=== PATIENT | male | born 1985 | race African-American/Black ===

== ENCOUNTER 2017-05-07 16:24 | Emergency (ER) | payer SELFPAY ==
[2017-05-07] MEDS ORDERED: Ibuprofen 200 MG TAB ONE (16:32)
--- NOTE | 2017-05-07 16:51 | RAD ---
TWO VIEWS OF THE CHEST 05/07/2017 COMPARISON: 07/02/2014 HISTORY: Cough and fever for 4 days. FINDINGS: No pneumothorax, pleural fluid, focal consolidation, or alveolar edema. Heart and mediastinal contours are unremarkable. IMPRESSION: No acute findings. POS: [facility]
[2017-05-07 17:28] LABS: #Basophils 0.3 thou/uL (0.0-0.2); #Eosinphils 0.3 thou/uL (0.0-0.7); #Lymphocytes 0.8 thou/uL (1.20-3.40); #Monocytes 0.8 thou/uL (0.11-0.59); #Neutrophils 11.1 thou/uL (1.40-6.50); %Basophils 1.9 % (0.0-1.0); %Eosinophils 2.2 % (0.0-10.0); %Lymphocytes 5.8 % (21.0-51.0); %Neutrophils 84.2 % (42.0-75.0); Differential Comment SCANNED; Hemoglobin 15.2 g/dL (14.0-18.0); Mean Corpuscular HGB CONC 31.9 g/dL (32.0-36.0); Mean Corpuscular Hemoglobin 27.6 pg (27.0-31.0); Mean Corpuscular Volume 86.6 fl (80.0-94.0); Mean Platelet Volume 8.9 fL (7.4-10.4); Platelet Count 207 thou/uL (130-400); RBC Distribution Width 12.1 % (11.5-14.5); Red Blood Cell (RBC) Count 5.52 mill/uL (4.70-6.10); White Blood Cell (WBC) Count 13.1 thou/uL (4.8-10.8)
[2017-05-07 17:29] LABS: ALT (SGPT) 15 U/L (8-55); AST (SGOT) 15 U/L (5-34); Albumin 4.5 g/dL (3.5-5.0); Alkaline Phosphatase 79 U/L (40-150); Anion Gap 15 mmol/L (10-20); BUN (Urea Nitrogen) 10 mg/dL (8.9-20.6); Calc. Creatinine Clearance 0 mL/min (70-130); Calcium 9.8 mg/dL (7.8-10.44); Carbon Dioxide 24 mmol/L (22-29); Chloride 106 mmol/L (98-107); Estimated GFR-MDRD 71; Globulin 3.8 g/dL (2.4-3.5); Glucose 102 mg/dL (70-105); Potassium 4.1 mmol/L (3.5-5.1); Protein, Total 8.3 g/dL (6.0-8.3); Sodium 141 mmol/L (136-145)
[2017-05-07] MEDS ORDERED: Sodium Chloride 0.9% 100 ML ONE (17:34)
[2017-05-07] MEDS ORDERED: Sodium Chloride 0.9% 1,000 ML ONE (17:34)
[2017-05-07] MEDS ORDERED: cefTRIAXone\\ROCEPHIN 1 GM VIAL ONE (17:34)
== END 2017-05-07 18:53 | disposition short-term general hospital (02) ==
LOC: NAV ERS 16:24
DX: A41.9 Sepsis, unspecified organism (principal); J18.9 Pneumonia, unspecified organism
CPT/HCPCS: 71020; 80053; 83605; 85025; 87040; 94640; 94760; 96365; J0696; J7050; J7620

== ENCOUNTER 2018-12-23 05:03 | Emergency (ER) | payer SELFPAY ==
[2018-12-23] MEDS ORDERED: Ketorolac Tromethamine 60 MG/2 ML VIAL ONE (05:43)
== END 2018-12-23 06:10 | disposition home or self-care (01) ==
LOC: NAV ERS 05:03
DX: K06.9 Disorder of gingiva and edentulous alveolar ridge, unspecified (principal); K02.9 Dental caries, unspecified; Z87.891 Personal history of nicotine dependence
CPT/HCPCS: J1885

== ENCOUNTER 2019-02-18 08:05 | Emergency (ER) | payer SELFPAY ==
[2019-02-18] MEDS ORDERED: Ondansetron ODT 4 MG TAB ONE (08:34)
== END 2019-02-18 09:34 | disposition home or self-care (01) ==
LOC: NAV ERS 08:05
DX: R05 Cough (principal); F17.220 Nicotine dependence, chewing tobacco, uncomplicated
CPT/HCPCS: 99283; Q0162

== ENCOUNTER 2019-09-08 07:54 | Emergency (ER) | payer SELFPAY ==
[2019-09-08] MEDS ORDERED: traMADol HCl 50 MG TAB ONE (08:17)
[2019-09-08 08:33] LABS: Bilirubin Negative (Negative); Blood, Urine Negative (Negative); Clarity Clear (Clear); Glucose, Urine (Dipstick) 100 mg/dL (Negative); Leukocyte Trace (Negative); Nitrite Negative (Negative); Protein, Urine (Dipstick) Negative (Neg-Trace); Urobilinogen 0.2 mg/dL (Less than 2)
[2019-09-08 08:42] LABS: Bacteria/HPF Rare-Few HPF (None Seen); RBC/HPF None Seen HPF (0-3); Squamous Epithelial 0-3 HPF (0-3)
--- NOTE | 2019-09-08 08:45 | RAD ---
Exam: Right RIBS 2 views chest one view HISTORY: Fall, injury COMPARISON: 05/07/2017 FINDINGS: No evidence for acute fracture or dislocation. No pleural effusion. No pneumothorax. IMPRESSION: No convincing evidence for right rib fracture. No other acute process.
== END 2019-09-08 08:53 | disposition home or self-care (01) ==
LOC: NAV ERS 07:54
DX: S20.221A Contusion of right back wall of thorax, initial encounter (principal); F17.220 Nicotine dependence, chewing tobacco, uncomplicated; W10.9XXA Fall (on) (from) unspecified stairs and steps, initial encounter
CPT/HCPCS: 81003; 81015

== ENCOUNTER 2019-10-07 14:20 | Emergency (ER) | payer SELFPAY ==
[2019-10-07] MEDS ORDERED: Aspirin Chewable 81 MG TAB ONE (14:58)
--- NOTE | 2019-10-07 15:24 | RAD ---
PORTABLE CHEST: Date: 10/07/2019 HISTORY: Chest pain. FINDINGS: Lungs appear clear. No infiltrate or vascular congestion. Heart and mediastinum unremarkable. IMPRESSION: No acute findings. POS: [facility]
[2019-10-07 15:34] LABS: #Basophils 0.1 thou/uL (0.0-0.2); #Eosinphils 0.3 thou/uL (0.0-0.7); #Lymphocytes 2.2 thou/uL (1.20-3.40); #Neutrophils 5.8 thou/uL (1.40-6.50); %Basophils 1.6 % (0.0-1.0); %Eosinophils 3.4 % (0.0-10.0); %Monocytes 10.2 % (0.0-10.0); %Neutrophils 61.9 % (42.0-75.0); Hemoglobin 14.6 g/dL (14.0-18.0); Mean Corpuscular HGB CONC 32.5 g/dL (32.0-36.0); Mean Corpuscular Hemoglobin 27.4 pg (27.0-31.0); Mean Corpuscular Volume 84.3 fL (78.0-98.0); Mean Platelet Volume 8.1 fL (7.4-10.4); Platelet Count 244 thou/uL (130-400); RBC Distribution Width 11.9 % (11.5-14.5); Red Blood Cell (RBC) Count 5.34 mill/uL (4.70-6.10); White Blood Cell (WBC) Count 9.4 thou/uL (4.8-10.8)
[2019-10-07 15:36] LABS: ALT (SGPT) 18 U/L (8-55); AST (SGOT) 17 U/L (5-34); Albumin 4.4 g/dL (3.5-5.0); Alkaline Phosphatase 77 U/L (40-110); Anion Gap 13 mmol/L (10-20); BUN (Urea Nitrogen) 11 mg/dL (8.9-20.6); Bilirubin, Total 0.3 mg/dL (0.2-1.2); Calc. Creatinine Clearance 0 mL/min (70-130); Calcium 9.6 mg/dL (7.8-10.44); Carbon Dioxide 24 mmol/L (22-29); Chloride 108 mmol/L (98-107); Estimated GFR-MDRD 82; Globulin 3.6 g/dL (2.4-3.5); Glucose 91 mg/dL (70-105); Lipase 33 U/L (8-78); Potassium 3.9 mmol/L (3.5-5.1); Sodium 141 mmol/L (136-145)
== END 2019-10-07 16:10 | disposition home or self-care (01) ==
LOC: NAV ERS 14:20
DX: R07.89 Other chest pain (principal); F17.220 Nicotine dependence, chewing tobacco, uncomplicated
CPT/HCPCS: 71045; 80053; 83690; 83735; 84484; 85025; 93005; 94760

== ENCOUNTER 2021-03-26 17:28 | Emergency (ER) | payer SELFPAY ==
[2021-03-26] MEDS ORDERED: Ketorolac Tromethamine 60 MG/2 ML VIAL ONE (18:00)
== END 2021-03-26 18:11 | disposition home or self-care (01) ==
LOC: NAV ERS 17:28
DX: M54.5 Low back pain (principal); F17.220 Nicotine dependence, chewing tobacco, uncomplicated
CPT/HCPCS: 96372; 99283; J1885

== ENCOUNTER 2021-04-28 17:10 | Emergency (ER) | payer SELFPAY ==
[2021-04-28 18:41] LABS: ALT (SGPT) 39 U/L (8-55); AST (SGOT) 19 U/L (5-34); Albumin 4.4 g/dL (3.5-5.0); Alkaline Phosphatase 83 U/L (40-110); Anion Gap 13 mmol/L (10-20); BUN (Urea Nitrogen) 11 mg/dL (8.9-20.6); Bilirubin, Total 0.8 mg/dL (0.2-1.2); Calc. Creatinine Clearance 0 mL/min (70-130); Calcium 9.4 mg/dL (7.8-10.44); Carbon Dioxide 24 mmol/L (22-29); Chloride 106 mmol/L (98-107); Globulin 3.7 g/dL (2.4-3.5); Glucose 101 mg/dL (70-105); Lipase 26 U/L (8-78); Potassium 3.7 mmol/L (3.5-5.1); Protein, Total 8.1 g/dL (6.0-8.3); Sodium 139 mmol/L (136-145)
[2021-04-28 18:51] LABS: Eosinophils 2 % (0-10); Hemoglobin 14.9 g/dL (14.0-18.0); Lymphocytes 12 % (21-51); MDiff Complete? YES; Mean Corpuscular Hemoglobin 28.1 pg (27.0-31.0); Mean Corpuscular Volume 85.3 fL (78.0-98.0); Mean Platelet Volume 7.7 fL (7.4-10.4); Monocytes 9 % (0-10); Neutrophil 77 % (42-75); Platelet Count 223 thou/uL (130-400); Platelet Morphology Comment Appears Adequate; RBC Distribution Width 11.9 % (11.5-14.5); Red Blood Cell (RBC) Count 5.28 mill/uL (4.70-6.10); Toxic Granulation SLIGHT; White Blood Cell (WBC) Count 20.1 thou/uL (4.8-10.8)
[2021-04-28] MEDS ORDERED: Sodium Chloride 0.9% 1,000 ML ONE (20:04)
[2021-04-28 20:14] LABS: Bilirubin Negative (Negative); Blood, Urine Negative (Negative); Clarity Clear (Clear); Glucose, Urine (Dipstick) Negative (Negative); Ketone, Urine Negative (Negative); Leukocyte Negative (Negative); Nitrite Negative (Negative); Protein, Urine (Dipstick) Negative (Neg-Trace); Specific Gravity, Urine 1.025 (1.005-1.030)
== END 2021-04-28 21:00 | disposition home or self-care (01) ==
LOC: NAV ERS 17:10
DX: E86.9 Volume depletion, unspecified (principal); R07.9 Chest pain, unspecified; F17.220 Nicotine dependence, chewing tobacco, uncomplicated
CPT/HCPCS: 71046; 80053; 81003; 83690; 84484; 85025; 93005; J7050

== ENCOUNTER 2021-07-10 12:58 | Emergency (ER) | payer SELFPAY ==
[2021-07-11 15:42] LABS: SARS-CoV-2 PCR by NAA Not Detected (NotDetected)
== END 2021-07-10 14:00 | disposition home or self-care (01) ==
LOC: NAV ERS 12:58
DX: J30.9 Allergic rhinitis, unspecified (principal); F17.220 Nicotine dependence, chewing tobacco, uncomplicated; Z20.822 Contact with and (suspected) exposure to COVID-19
CPT/HCPCS: 99283; U0003; U0005